=== PATIENT | male | born 1955 | race Caucasian/White ===

== ENCOUNTER 2022-07-10 06:29 | Day surgery (SDC) | payer OTHER, MEDICARE, BC ==
[~2022-07-10] VITALS: Ht 170.2 cm; Wt 94.7 kg
[2022-07-10] MEDS ORDERED: LIDOcaine 1% 30ml preserv. free vial SQ STA (06:43)
[2022-07-10 06:47] VITALS: BP 112/70
[2022-07-10] MEDS ORDERED: CARV-50 PO (06:56)
[2022-07-10] MEDS ORDERED: ASPI-1265 PO (06:56)
[2022-07-10] MEDS ORDERED: ATOR40TA72 PO (06:56)
[2022-07-10] MEDS ORDERED: LISI5TAB22 PO (06:56)
[2022-07-10] MEDS ORDERED: FLO0.4C PO (06:57)
[2022-07-10 09:44] VITALS: BP 94/66
[2022-07-10 09:45] VITALS: BP 98/61
[2022-07-10 09:47] VITALS: BP 105/62
== END 2022-07-10 10:10 | disposition home or self-care (01) ==
LOC: SSTAY O 06:29
PROVIDERS: ATTEND Radiology Vascular & Interventional Radiology
DX: R22.2 Localized swelling, mass and lump, trunk (principal); E78.5 Hyperlipidemia, unspecified; I10 Essential (primary) hypertension; N40.0 Benign prostatic hyperplasia without lower urinary tract symptoms; Z79.82 Long term (current) use of aspirin; Z79.899 Other long term (current) drug therapy
CPT/HCPCS: 20206; 76942; J3490; 32408

== ENCOUNTER 2022-07-28 06:32 | Day surgery (SDC) | payer MEDICARE, BC ==
[~2022-07-28] VITALS: Ht 170.2 cm; Wt 92.5 kg
[~2022-07-28 06:32] MED LIST: ASPI-1265 PO; ATOR40TA72 PO; CARV-50 PO; FAMO-128 PO; LISI5TAB22 PO
[2022-07-28] MEDS ORDERED: SENN-283 PO (06:45)
[2022-07-28] MEDS ORDERED: normal saline 1000ml 1,000 ML IV SCH (06:55)
[2022-07-28 07:02] VITALS: BP 114/63
[2022-07-28] MEDS ORDERED: heparin sodium, porcine/PF 100unit/ml 5ML syringe ONE (08:13)
[2022-07-28] MEDS ORDERED: midazolam 1 mg/ML 2ml injection ONE ×2 (08:14→08:57)
[2022-07-28] MEDS ORDERED: fentaNYL/PF 50MCG/1 ML 2ML syringe ONE ×2 (08:14→08:58)
[2022-07-28] MEDS ORDERED: LIDOcaine 1% 30ml preserv. free vial ONE (08:14)
[2022-07-28 09:30] VITALS: BP 107/71
[2022-07-28 09:45] VITALS: BP 103/66
[2022-07-28 10:00] VITALS: BP 103/66
[2022-07-28 10:15] VITALS: BP 102/60
[2022-07-28 10:30] VITALS: BP 102/60
== END 2022-07-28 10:30 | disposition home or self-care (01) ==
LOC: SSTAY O 06:32
PROVIDERS: ATTEND Radiology Vascular & Interventional Radiology
DX: C81.92 Hodgkin lymphoma, unspecified, intrathoracic lymph nodes (principal); I25.10 Atherosclerotic heart disease of native coronary artery without angina pectoris; I10 Essential (primary) hypertension; E78.5 Hyperlipidemia, unspecified; F10.21 Alcohol dependence, in remission; Z95.5 Presence of coronary angioplasty implant and graft; Z98.890 Other specified postprocedural states; Z79.899 Other long term (current) drug therapy; Z79.82 Long term (current) use of aspirin
CPT/HCPCS: 36561; 76937; 77001; 99152; C1788; C1894; J1642; J2250; J3010; J3490; J7030; 99153; A4620